=== PATIENT | male | born 1990 | race American Indian/Alaskan Native ===

== ENCOUNTER 2017-01-07 14:50 | Emergency (ER) | payer SELFPAY ==
[2017-01-07 15:36] VITALS: BP 131/67
[2017-01-07] MEDS ORDERED: NORCO 5/325 PO ONE (16:01)
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
== END 2017-01-07 18:10 | disposition home or self-care (01) ==
LOC: ED 14:50
DX: S06.0X0A Concussion without loss of consciousness, initial encounter (principal); S00.83XA Contusion of other part of head, initial encounter; Y04.2XXA Assault by strike against or bumped into by another person, initial encounter; Y93.89 Activity, other specified; Y99.8 Other external cause status; Y92.89 Other specified places as the place of occurrence of the external cause; F90.9 Attention-deficit hyperactivity disorder, unspecified type; F17.200 Nicotine dependence, unspecified, uncomplicated
CPT/HCPCS: 70450; 70486; 72125

== ENCOUNTER 2017-01-08 18:17 | Emergency (ER) | payer SELFPAY ==
[2017-01-08 18:51] VITALS: BP 119/71
== END 2017-01-08 23:00 | disposition left against medical advice (07) ==
LOC: ED 18:17
DX: H57.12 Ocular pain, left eye (principal); F90.9 Attention-deficit hyperactivity disorder, unspecified type; F12.90 Cannabis use, unspecified, uncomplicated; Z53.21 Procedure and treatment not carried out due to patient leaving prior to being seen by health care provider